=== PATIENT | female | born 1950 | race Caucasian/White ===

== ENCOUNTER 2022-05-10 19:12 | Outpatient (RCR) | payer OTHER, SELFPAY | END 2022-07-27 13:56 | disposition home or self-care (01) | LOC: MOW 19:12 | PROVIDERS: PCP Physician Assistant Medical; Visit Provider Physician Assistant Medical | DX: Z76.0 Encounter for issue of repeat prescription (principal) | CPT/HCPCS: S5170 ==

== ENCOUNTER 2022-07-01 21:15 | Emergency (ER) | payer MEDICARE, BC, SELFPAY ==
--- NOTE | 2022-07-01 | CT_ITS ---
Patient: NAVDEEP YOUNG Facility:?[facility] RIS Patient ID:?[id number] Site Patient ID:?[id number]. Site :?[id number] Study:?CT-Neck Angio Angio W/95CC IOSVUE 370 STROKE PROTOCO-07/01/2022 11:35:20 PM Ordering Physician:Bridget Kaplan Final Report: DATE: 07/01/2022 CLINICAL HISTORY: Patient with right arm numbness and weakness. TECHNIQUE: Standard helical CT image acquisition of the neck up to the skull base after bolus intravenous contrast enhancement. Multiplanar reconstructed images performed on a separate workstation. COMPARISON: CT same day. FINDINGS: The origins of the great vessels from the aortic arch are patent. The origin of the right vertebral artery is patent. The origin of the left vertebral artery is patent. The common carotid arteries are patent. There is no stenosis at the origin of the right internal carotid artery. There is no stenosis at the origin of the left internal carotid artery. The rest of the cervical segments of the internal carotid arteries are patent up to the skull base. The left vertebral artery is dominant. The cervical segments of the vertebral arteries are patent up to the skull base. The visualized intracranial vasculature is unremarkable. The visualized lung apices are unremarkable. The thyroid gland is unremarkable. The soft tissues of the neck are unremarkable. There are degenerative changes in the cervical spine. IMPRESSION: Normal CT angiogram of the neck. Please note that all CT scans at this facility use dose modulation, iterative reconstruction, and/or weight-based dosing when appropriate to reduce radiation dose to as low as reasonably achievable. Dictated by Nia Cohn MD @ 07/02/2022 9:43:19 AM Signed by:?Nia Cohn MD @07/02/2022 9:43:19 AM (Electronic Signature)
[2022-07-01 21:32] VITALS: BP 168/76; PULSE 82; RESP 18; TEMP 36.8; O2SAT 95; BMI 38.6
--- NOTE | 2022-07-01 22:19 | ED_ITS ---
HPI - Neuro Symptoms/Deficit General Chief Complaint: Neuro Symptoms/Altered Deficit Stated Complaint: No feeling in right arm Time Seen by Provider: 07/01/22 21:31 History of Present Illness HPI Narrative: 71-year-old woman presenting to the emergency department with daughter With complaint of numbness in her right arm. Further questioning reveals also that there is weakness. There is underlying history of cerebral vascular accident that occurred during a TAVR 1.5 years ago resulting in a thalamic stroke and after much is left with some mild difficulty with memory and mild word confusion at times. She is transitioning positions and has been missing her medications over the last couple of weeks. does have a history of breast cancer and subsequent lymphedema of the right arm, she is left hand dominant, and normally has to wear compression. She has a number of compression socks and placed one on today that is just too tight. She did leave it on for approximately 12 hours however then when she took it off, she suspects around 5 hours ago, noticed that her right hand was numb and had a cold sensation; has noticed that this numbness continued on up to her deltoid. and that her arm is generally weak. This is atypical. She was otherwise in usual state of health. No cough or cold symptoms. She is not having any since. No fevers. No chest pain no shortness of breath Related Data Home Medications Medication Instructions Recorded Confirmed acetaminophen 300 mg-codeine 30 mg 1 tab PO Q4H PRN pain 07/01/22 07/01/22 tablet cholecalciferol (vitamin D3) 25 1,000 unit PO DAILY 07/01/22 07/01/22 mcg (1,000 unit) capsule losartan 25 mg tablet 25 mg PO DAILY 07/01/22 07/01/22 polyvinyl alcohol-povidone (PF) 1 drp ophthalmic (eye) DAILY PRN 07/01/22 07/01/22 1.4 %-0.6 % eye drops in a dropperette Allergies Allergy/AdvReac Type Severity Reaction Status Date / Time aspirin Allergy Severe throat Verified 07/01/22 21:45 swelling atenolol Allergy Severe tongue Verified 07/01/22 21:45 swelling cefazolin Allergy Severe colitis, Verified 07/01/22 21:45 thrush clindamycin Allergy Severe shortness Verified 07/01/22 21:45 of breath formaldehyde Allergy Severe toxicity Verified 07/01/22 21:45 hydrocodone Allergy Severe throat Verified 07/01/22 21:45 swelling mercury (elemental) Allergy Severe toxicity Verified 07/01/22 21:45 metformin Allergy Intermediate nausea, Verified 07/01/22 22:16 diarrhea tramadol Allergy Intermediate gi upset Verified 07/01/22 21:45 chlorhexidine Allergy Mild Rash Verified 07/01/22 22:16 lisinopril Allergy Mild Rash Verified 07/01/22 22:16 adhesive Allergy Unknown Verified 07/01/22 21:45 corn Allergy Unknown Verified 07/01/22 22:16 cortisone Allergy Unknown Verified 07/01/22 22:16 Echinacea Allergy Unknown Verified 07/01/22 22:16 eggplant Allergy Unknown Verified 07/01/22 22:16 garlic Allergy Unknown Verified 07/01/22 22:16 house dust Allergy Unknown Verified 07/01/22 22:16 house dust mite Allergy Unknown Verified 07/01/22 22:16 latex Allergy Unknown Verified 07/01/22 21:45 milk Allergy Unknown Verified 07/01/22 22:16 misoprostol Allergy Unknown Verified 07/01/22 21:45 nickel Allergy Unknown Verified 07/01/22 21:45 paprika Allergy Unknown Verified 07/01/22 22:16 peanut oil Allergy Unknown Verified 07/01/22 21:45 perfume Allergy Unknown Verified 07/01/22 22:16 pork derived (porcine) Allergy Unknown Verified 07/01/22 22:16 soy Allergy Unknown Verified 07/01/22 22:16 Sulfa (Sulfonamide Allergy Unknown Verified 07/01/22 21:45 Antibiotics) ibuprofen Allergy gi bleeding Verified 07/01/22 22:16 chlorine Allergy Severe breathing Uncoded 07/01/22 21:45 difficulty Review of Systems Status of ROS: Reports: 10 or more systems reviewed and unremarkable except as noted in History and below [facility] Medical History Acute ischemic stroke Adenoma of right adrenal gland Adjustment disorder with mixed anxiety and depressed mood Anemia, iron deficiency Anxiety state Arthralgia Asthma without status asthmaticus Autoimmune disorder B12 deficiency Bone/cartilage disorder Carcinoma in situ of cervix, unspecified Chronic kidney disease, stage 3a Chronic myofascial pain Complaint of rash Complex tear of medial meniscus, current injury, right knee, initial encounter Controlled diabetes mellitus with complication, without long-term current use of insulin Cyst of kidney, acquired Elevated serum creatinine Endometrial polyp Essential (primary) hypertension Fatty liver Gastro-esophageal reflux disease without esophagitis Hemiplegia and hemiparesis following cerebral infarction affecting left non- dominant side Hernia, hiatal Lymphedema, not elsewhere classified Malignant neoplasm of female breast Moderate episode of recurrent major depressive disorder Morbid (severe) obesity due to excess calories Myalgia, unspecified site Nephrolithiasis Nonrheumatic aortic (valve) stenosis Osteopenia of multiple sites Other hyperlipidemia Pain in extremity Polymyalgia rheumatica Prediabetes Primary hyperparathyroidism Pure hyperglyceridemia Rosacea, unspecified Ulcerative colitis with rectal bleeding Vitamin D deficiency, unspecified Surgical History H/O arthroscopy of right knee H/O parathyroidectomy History of aortic valve replacement History of breast reconstruction History of dilatation and curettage History of right mastectomy History of YAG laser iridotomy of both eyes Hx of cataract extraction Social History Smoking Status: Never smoker Do you use any of these nicotine containing products: None Second hand tobacco smoke exposure: No How often do you have a drink containing alcohol: never How often do you have six or more drinks on one occasion: Never AUDIT-C Alcohol total score: 0 Non-prescribed substance use: denies use service: No Exam Narrative: Exam Narrative: very pleasant. Mildly anxious. Was noted to be ambulatory into the ER. Cranial nerves 2-12 are intact. GCS of 15. She is breathing easily and articulating clearly. Other than the right arm is moving all extremities without difficulty. I would score 2 on the NIH Stroke Scale for the degree of sensory loss and deficit in the right arm. unable distinguish soft touch from pinprick on her entire arm at this time and moves about his if weak but does not actually hit the bed drifts vaguely. Has about a 3rd of the dairy hand strength in her right that she would send left. the sensory loss is total not discrete to specific nerve distribution. Head is atraumatic. Lungs are clear no pain or evidence to palpation about the and chest or back. cardiovascular with regular rate and rhythm 2/6 systolic murmur loudest at the right sternal border Extremities actually well perfused she has good capillary refill including on the right Const: Vital Signs, click to edit/add: Vital Signs - 24 hr 08/19/22 21:32 07/01/22 23:48 Temperature 98.2 F Pulse Rate [Right Radial] 82 Respiratory Rate 18 23 Blood Pressure [Le ft Upper Arm] 168/76 H 141/67 H Pulse Oximetry 95 97 Oxygen Delivery Me thod Room Air Documenting provider has reviewed patient's vital signs: yes Course Course Hospital Course: IV fluids were initiated. Reevaluation(s) Reevaluation #1: During time of resulting of the CTA Ms. Jeffrey was already having improvement in her motor of her right arm and hand. Would estimate she had doubled the strength of her right hand with improved coordination as well upper arm and hand. Still could not feel her forearm though this also improved a little later with some resolution of her sensory Reevaluation #2: Subsequent evaluation around 1:30 a.m. with continued strengthening of her arm, improved coordination and sensation. Consultations Consultation #1: I spoke with Stroke Neuro on-call with Suzette Mckeon recommending watching in the emergency department overnight(as we do not have any beds in the hospital) giving aspirin if possible(I would note Ms. Jeffrey does not have a true allergy to aspirin) and doing an MRI of the brain tomorrow. Vital Signs Vital signs: Initial Vital Signs Temperature 98.2 F 07/01/22 21:32 Temperature Source Temporal Artery Scan 07/01/22 21:32 Pulse Rate 82 07/01/22 21:32 Pulse Rhythm 07/01/22 21:32 Pulse Strength 3+ Normal 07/01/22 21:32 Respiratory Rate 18 07/01/22 21:32 Blood Pressure 168/76 H 07/01/22 21:32 Blood Pressure Mean 106 07/01/22 21:32 Blood Pressure Position Semi-Fowlers 07/01/22 21:32 Pulse Oximetry 95 07/01/22 21:32 Oxygen Delivery Method 07/01/22 21:32 Vital Signs Temperature 98.2 F 07/01/22 21:32 Pulse Rate 82 07/01/22 21:32 Respiratory Rate 18 07/01/22 21:32 Blood Pressure 168/76 H 07/01/22 21:32 Pulse Oximetry 95 07/01/22 21:32 Oxygen Delivery Method 07/01/22 21:32 Temperature 98.2 F 07/01/22 21:32 Pulse Rate 82 07/01/22 21:32 Respiratory Rate 23 07/01/22 23:48 Blood Pressure 141/67 H 07/01/22 23:48 Pulse Oximetry 97 07/01/22 23:48 Oxygen Delivery Method 07/01/22 21:32 MDM - Neuro Symptoms/Deficit MDM Narrative Medical decision making narrative: after interviewing patient went immediately to call to stroke neuro. Given unclear duration of numbness/weakness as admittedly it could be a little bit longer than described, not a candidate for lytics. Concern still remains of large vessel occlusion. Spoke to Stroke Neuro who would go ahead CTA of head/neck no other recommended interventions at this time. CTA confirmed no large vessel occlusions and as noted elsewhere in record Ms. Jeffrey continued to improve. I think this is really more of a peripheral problem due to prolonged compression in a lymphedematous limb. Initial appearance really did seem to be more of a limb that had been slept on. Laboratory evaluations were normal. Agreed to sleep Ms. Jeffrey in the emergency department overnight for an MRI in the morning until realized that the morning is Monday. There is a possibility though of an MRI of the brain here in this department in the morning due to staff who are working. This is been discussed with colleague at change of shift. Symptoms are clearing and provided normal MRI would consider ultrasound of the right upper extremity if symptoms have not resolved Would note that the prior CVA occurred related to a surgical procedure and in that sense was provoked. Medical Records Attestation: I reviewed the patient's medical records. Lab Data Attestation: I reviewed the patient's lab results. Labs: Lab Results 07/01/22 07/01/22 07/01/22 Range/Units 22:20 22:30 22:30 WBC 6.35 (4.50-11.00) K/uL RBC 4.71 (4.00-5.20) m/uL Hgb 13.0 (12.0-16.0) gm/dL Hct 40.7 (33.0-51.0) % MCV 86 (80-100) fL MCH 28 (26-34) pg MCHC 32 (32-36) gm/dL RDW Coeff of Joaquín 14.4 (11.5-15.5) % Plt Count 233 (140-440) K/uL Neut % (Auto) 58.3 (42.0-72.0) % Lymph % (Auto) 26.6 (20-44) % [place] % (Auto) 9.8 (0.0-11.0) % Eos % (Auto) 4.1 (0.0-7.0) % Baso % (Auto) 0.6 (0.0-3.0) % Neut # (Auto) 3.70 (1.7-7.0) K/uL Lymph # (Auto) 1.69 (0.90-2.90) K/uL [place] # (Auto) 0.60 (0.00-0.90) K/UL Eos # (Auto) 0.26 (0.00-0.50) K/uL Baso # (Auto) 0.04 (0.00-0.30) K/uL Abs Immat Gran (auto) 0.04 (0.00-0.30) K/uL INR (0.91-1.10) APTT (23-33) Seconds Sodium (135-149) mmol/L Potassium (3.6-5.1) mmol/L Chloride (96-114) mmol/L Carbon Dioxide (20-32) mmol/L BUN (7-30) mg/dL Creatinine (0.5-1.5) mg/dL Estimated Creat Clear Estimated GFR ml/min Glucose (60-115) mg/dL Calcium (8.4-10.6) mg/dL Total Bilirubin (0.1-1.5) mg/dL AST (12-35) U/L ALT (4-35) U/L Alkaline Phosphatase (40-150) U/L Total Creatine Kinase (41-117) U/L Troponin I (0.01-0.04) ng/mL C-Reactive Protein 0.9 (0.5-1.0) mg/dL Total Protein (6.0-8.3) g/dL Albumin (3.3-5.0) g/dL SARS-CoV-2 (PCR) (Negative) POC Troponin I 0.01 (0.01-0.04) ng/ml 07/01/22 07/01/22 07/01/22 Range/Units 22:30 22:30 22:30 WBC (4.50-11.00) K/uL RBC (4.00-5.20) m/uL Hgb (12.0-16.0) gm/dL Hct (33.0-51.0) % MCV (80-100) fL MCH (26-34) pg MCHC (32-36) gm/dL RDW Coeff of Joaquín (11.5-15.5) % Plt Count (140-440) K/uL Neut % (Auto) (42.0-72.0) % Lymph % (Auto) (20-44) % [place] % (Auto) (0.0-11.0) % Eos % (Auto) (0.0-7.0) % Baso % (Auto) (0.0-3.0) % Neut # (Auto) (1.7-7.0) K/uL Lymph # (Auto) (0.90-2.90) K/uL [place] # (Auto) (0.00-0.90) K/UL Eos # (Auto) (0.00-0.50) K/uL Baso # (Auto) (0.00-0.30) K/uL Abs Immat Gran (auto) (0.00-0.30) K/uL INR 0.92 (0.91-1.10) APTT 28 (23-33) Seconds Sodium 142 (135-149) mmol/L Potassium 4.0 (3.6-5.1) mmol/L Chloride 108 (96-114) mmol/L Carbon Dioxide 26 (20-32) mmol/L BUN 18 (7-30) mg/dL Creatinine 1.2 (0.5-1.5) mg/dL Estimated Creat Clear 59.66 Estimated GFR 49 ml/min Glucose 103 (60-115) mg/dL Calcium 8.8 (8.4-10.6) mg/dL Total Bilirubin 0.3 (0.1-1.5) mg/dL AST 34 (12-35) U/L ALT 16 (4-35) U/L Alkaline Phosphatase 80 (40-150) U/L Total Creatine Kinase (41-117) U/L Troponin I 0.01 (0.01-0.04) ng/mL C-Reactive Protein (0.5-1.0) mg/dL Total Protein 7.5 (6.0-8.3) g/dL Albumin 4.0 (3.3-5.0) g/dL SARS-CoV-2 (PCR) Negative SARS-CoV-2 (Negative) POC Troponin I (0.01-0.04) ng/ml 07/01/22 Range/Units 22:30 WBC (4.50-11.00) K/uL RBC (4.00-5.20) m/uL Hgb (12.0-16.0) gm/dL Hct (33.0-51.0) % MCV (80-100) fL MCH (26-34) pg MCHC (32-36) gm/dL RDW Coeff of Joaquín (11.5-15.5) % Plt Count (140-440) K/uL Neut % (Auto) (42.0-72.0) % Lymph % (Auto) (20-44) % [place] % (Auto) (0.0-11.0) % Eos % (Auto) (0.0-7.0) % Baso % (Auto) (0.0-3.0) % Neut # (Auto) (1.7-7.0) K/uL Lymph # (Auto) (0.90-2.90) K/uL [place] # (Auto) (0.00-0.90) K/UL Eos # (Auto) (0.00-0.50) K/uL Baso # (Auto) (0.00-0.30) K/uL Abs Immat Gran (auto) (0.00-0.30) K/uL INR (0.91-1.10) APTT (23-33) Seconds Sodium (135-149) mmol/L Potassium (3.6-5.1) mmol/L Chloride (96-114) mmol/L Carbon Dioxide (20-32) mmol/L BUN (7-30) mg/dL Creatinine (0.5-1.5) mg/dL Estimated Creat Clear Estimated GFR ml/min Glucose (60-115) mg/dL Calcium (8.4-10.6) mg/dL Total Bilirubin (0.1-1.5) mg/dL AST (12-35) U/L ALT (4-35) U/L Alkaline Phosphatase (40-150) U/L Total Creatine Kinase 36 L (41-117) U/L Troponin I (0.01-0.04) ng/mL C-Reactive Protein (0.5-1.0) mg/dL Total Protein (6.0-8.3) g/dL Albumin (3.3-5.0) g/dL SARS-CoV-2 (PCR) (Negative) POC Troponin I (0.01-0.04) ng/ml ECG Data Attestation: I personally reviewed and interpreted this ECG as follows: (Normal sinus rate of [address] elevations no depressions no Q-waves.) Critical Care Time Critical Care Time Critical Care Time: Yes Attestation: The patient required my highest level preparedness to intervene emergently and I personally spent this critical care time directly and personally managing the patient. This critical care time included: Obtaining a history; Examining the patient; Pulse oximetry; Ordering and reviewing of studies; Arranging urgent treatment with development of a management plan; Evaluation of patients response to treatment; Frequent reassessment discussions with other providers. This critical care time was performed to assess and manage the high probability of imminent life-threatening deterioration that could result in multiorgan failure. It was exclusive of separate billable procedures and treating other patients and teaching time. Total Critical Care Time in Minutes: 40 Discharge Plan Discharge Clinical Impression: Paresthesia Patient Disposition: Home w/ Parent or Adult Condition: Improved Additional Instructions: Hydrate. Avoid extremely tight compression of your arm. Restart prescribed medications. Prescriptions: No Action acetaminophen-codeine 300-30 mg tablet 1 tab PO Q4H PRN (Reason: pain) Label Comments: Take 1 Tablet by mouth every 4 hours if needed for Pain. Max acetaminophen dose: 4000mg in 24 hrs. losartan 25 mg tablet 25 mg PO DAILY Label Comments: TAKE ONE TABLET BY MOUTH ONE TIME DAILY cholecalciferol (vitamin D3) 25 mcg (1,000 unit) capsule 1,000 unit PO DAILY polyvinyl alcohol-povidon(PF) 1.4-0.6 % dropperette 1 drp ophthalmic (eye) DAILY PRN Follow Up/Referrals: Marga Arzola DO [Primary Care Provider] - Stand Alone Forms: [facility] Info Instructions
--- NOTE | 2022-07-01 22:27 | CT_ITS ---
Patient: NAVDEEP YOUNG Facility:?[facility] R[facility] Patient ID:?[id number] Site Patient ID:?[id number]. Site :?[id number] Study:?CT-Head Angio W/95CC IOSVUE 370 STROKE PROTOCOL-07/01/2022 11:31:57 PM Ordering Physician:Bridget Kaplan Final Report: DATE: 07/01/2022 CLINICAL HISTORY: Patient with right arm numbness and weakness. TECHNIQUE: Standard helical CT image acquisition through the intracranial circulation following intravenous administration of contrast material with bolus tracking. Multiplanar reconstructed images were performed and interpreted. COMPARISON: CT same day. FINDINGS: There is no cerebral aneurysm or large vessel occlusion. The right internal carotid artery demonstrates intracranial atherosclerosis with a moderate stenosis in its supraclinoid segment. The right middle cerebral artery and its branches are normal. The right anterior cerebral artery and its branches are normal. The left internal carotid artery demonstrates intracranial atherosclerosis with a mild stenosis in its supraclinoid segment. The left middle cerebral artery and its branches are normal. The left anterior cerebral artery and its branches are normal. The anterior communicating artery is well visualized and appears normal. The right vertebral artery and PICA are normal. The left vertebral artery and PICA are normal. The left vertebral artery is dominant. The basilar artery is patent and appears normal. The right posterior cerebral artery is normal. The left posterior cerebral artery is normal. IMPRESSION: 1. No proximal intracranial large vessel occlusion. 2. Intracranial atherosclerosis with moderate right and mild left supraclinoid ICA stenoses. Please note that all CT scans at this facility use dose modulation, iterative reconstruction, and/or weight-based dosing when appropriate to reduce radiation dose to as low as reasonably achievable. Dictated by Nia Cohn MD @ 07/02/2022 9:41:34 AM Signed by:?Nia Cohn MD @07/02/2022 9:41:34 AM (Electronic Signature)
--- NOTE | 2022-07-01 22:27 | CRLHL7_ITS ---
For Patients: As a result of the Century Cures Act, medical imaging exams and procedure reports are released immediately into your electronic medical record. You may view this report before your referring provider. If you have questions, please contact your health care provider. INDICATION: Right arm numbness, weakness TECHNIQUE: CT Head without i.v. contrast. Coronal and sagittal reformats were obtained. COMPARISON: None FINDINGS: CSF space: Unremarkable for age. Brain: A chronic lacunar infarct is present near the genu of the right internal capsule. No mass-effect or midline shift is seen. Mild diffuse cortical atrophy is noted. Calvarium: The visualized paranasal sinuses are well aerated. The mastoid air cells are clear. The patient is status post bilateral cataract removal. The calvarium is unremarkable in appearance with no fractures identified. IMPRESSION: 1. No evidence of acute infarction, intracranial hemorrhage, or mass-effect seen. The findings were discussed with Dr. Mcmahan at 12:06 AM. Dictated by Huy Diaz MD @ 07/01/2022 11:56:13 PM Please note that all CT scans at this facility use dose modulation, iterative reconstruction, and/or weight-based dosing when appropriate to reduce radiation dose to as low as reasonably achievable. Dictated by: Huy Diaz MD @ 07/02/2022 00:06:47 (Electronically Signed)
[2022-07-01] MEDS: 0.9 % SODIUM CHLORIDE 1000 ml 1,000 ML IV (22:43)
[2022-07-01 22:50] LABS: Basophils Absolute Auto 0.04 K/uL (0.00-0.30); Basophils Percent Auto 0.6 % (0.0-3.0); Eosinophils Absolute Auto 0.26 K/uL (0.00-0.50); Eosinophils Percent Auto 4.1 % (0.0-7.0); Hematocrit 40.7 % (33.0-51.0); Immature Granulocytes Abs Auto 0.04 K/uL (0.00-0.30); Lymphocytes Absolute Auto 1.69 K/uL (0.90-2.90); Lymphocytes Percent Auto 26.6 % (20-44); Mean Corpuscular HGB Conc 32 gm/dL (32-36); Mean Corpuscular Hemoglobin 28 pg (26-34); Mean Corpuscular Volume 86 fL (80-100); Monocytes Percent Auto 9.8 % (0.0-11.0); Neutrophils Percent Auto 58.3 % (42.0-72.0); Platelet Count* 233 K/uL (140-440); RDW Coefficient of Variation % 14.4 % (11.5-15.5); Red Blood Count 4.71 m/uL (4.00-5.20); White Blood Count* 6.35 K/uL (4.50-11.00)
[2022-07-01 22:53] LABS: Slide Review Reflex No
[2022-07-01 23:07] LABS: Chloride* 108 mmol/L (96-114); INR 0.92 (0.91-1.10); Prothrombin Time 12.8 Seconds
[2022-07-01 23:08] LABS: Partial Thromboplastin Time* 28 Seconds (23-33); Sodium* 142 mmol/L (135-149)
[2022-07-01 23:11] LABS: Alanine Aminotransferase* 16 U/L (4-35); Alkaline Phosphatase* 80 U/L (40-150); Aspartate Amino Transferase* 34 U/L (12-35); Bilirubin Total* 0.3 mg/dL (0.1-1.5); Blood Urea Nitrogen* 18 mg/dL (7-30); Calcium* 8.8 mg/dL (8.4-10.6); Carbon Dioxide* 26 mmol/L (20-32); Creatine Kinase* 36 U/L (41-117); Creatinine* 1.2 mg/dL (0.5-1.5); Est. Creatinine Clearance* 59.66; Estimated Glomerular Filt Rate 49 ml/min; Glucose* 103 mg/dL (60-115); Total Protein* 7.5 g/dL (6.0-8.3)
[2022-07-01 23:13] LABS: C Reactive Protein* 0.9 mg/dL (0.5-1.0)
[2022-07-01 23:23] LABS: Troponin I* 0.01 ng/mL (0.01-0.04)
[2022-07-01 23:48] VITALS: BP 141/67; RESP 23; O2SAT 97
--- NOTE | 2022-07-01 23:50 | ED.NURSE ---
Patient with no neurologic change since previous assessment. Still with some weakness and no sensation in right arm and hand. Patient is able to move fingers and make fist better than on arrival.
[2022-07-01 23:54] LABS: Troponin, Point-of-Care* 0.01 ng/ml (0.01-0.04)
--- NOTE | 2022-07-02 00:01 | ED.NURSE ---
Patient ambulatory to bathroom with family assist.
[2022-07-02 00:21] LABS: SARS PCR* Negative SARS-CoV-2 (Negative)
--- NOTE | 2022-07-02 02:28 | ED.NURSE ---
Patient ambulatory to with family assist.
[2022-07-02] MEDS: ASPIRIN 81 MG TABLET EC PO (07:08)
--- NOTE | 2022-07-02 08:02 | PC.NURSE ---
Dr Richmond saw pt, daughter contacted and will be en route to pick pt up shortly
--- NOTE | 2022-07-02 08:12 | PC.NURSE ---
pt got herself up to the commode with stand by assist, pt unable to locate shorts in belongings, given some paper pants to get home with, daughter Alana called and on her way to ER
== END 2022-07-02 08:45 | disposition home or self-care (01) ==
PROVIDERS: Emergency Provider Family Medicine; PCP Family Medicine
DX: R20.2 Paresthesia of skin (principal); I25.2 Old myocardial infarction
CPT/HCPCS: 36415; 70450; 70496; 70498; 80053; 81003; 82550; 84484; 85025; 85610; 85730; 86140; 87635; 93005; 96360; 99284; 99285; 99291; A9270; J7030; Q9967

== ENCOUNTER 2022-09-05 11:51 | Outpatient (REF) | payer MEDICARE, BC, SELFPAY ==
[2022-09-05 14:04] LABS: SARS PCR* Negative SARS-CoV-2 (Negative)
== END 2022-09-05 11:52 | disposition home or self-care (01) ==
LOC: NPINS 11:51
PROVIDERS: PCP Family Medicine; Visit Provider Internal Medicine
DX: Z20.822 Contact with and (suspected) exposure to COVID-19 (principal)
CPT/HCPCS: 87635

== ENCOUNTER 2022-10-13 10:00 | Outpatient (RCR) | payer MEDICARE, BC, SELFPAY | END 2023-01-27 15:57 | disposition home or self-care (01) | PROVIDERS: PCP Family Medicine; Visit Provider Family Medicine | DX: I89.0 Lymphedema, not elsewhere classified (principal); Z51.89 Encounter for other specified aftercare | CPT/HCPCS: 97110; 97140; 97165; 97535; X5282 ==

== ENCOUNTER 2023-05-07 10:59 | Emergency (ER) | payer MEDICARE, BC, SELFPAY ==
--- NOTE | 2023-05-07 11:02 | CRLHL7_ITS ---
For Patients: As a result of the Century Cures Act, medical imaging exams and procedure reports are released immediately into your electronic medical record. You may view this report before your referring provider. If you have questions, please contact your health care provider. CLINICAL HISTORY: Stroke. TECHNIQUE: CTA head with contrast bolus tracking. 3D angiographic rendering using maximum intensity projection (MIP) and images permanently archived. COMPARISON: None available. FINDINGS: No intracranial proximal large vessel occlusion. There is intracranial atherosclerotic disease with resulting moderate to severe stenosis of the supraclinoid right ICA. There is no cerebral aneurysm or findings to suggest an arterial-venous shunting lesion. IMPRESSION: Intracranial atherosclerotic disease with moderate to severe stenosis of the supraclinoid right ICA. Please note that all CT scans at this facility use dose modulation, iterative reconstruction, and/or weight-based dosing when appropriate to reduce radiation dose to as low as reasonably achievable. Dictated by Dong Arthur MD @ 05/07/2023 2:27:26 PM (Electronically Signed)
--- NOTE | 2023-05-07 11:02 | CRLHL7_ITS ---
For Patients: As a result of the Century Cures Act, medical imaging exams and procedure reports are released immediately into your electronic medical record. You may view this report before your referring provider. If you have questions, please contact your health care provider. CLINICAL HISTORY: Stroke. TECHNIQUE: CTA neck with contrast bolus tracking. 3D angiographic rendering using maximum intensity projection (MIP) and images permanently archived. COMPARISON: CTA head and neck dated 07/01/2022. FINDINGS: The great vessels are patent. The common carotid arteries are patent. The proximal ICAs are patent without signficant stenoses by NASCET criteria. The more distal cervical ICAs are patent. The origins of the vertebral arteries are patent. The cervical segments of the vertebral arteries are patent. IMPRESSION: Patent cervical arterial vasculature without hemodynamically significant luminal stenosis. Please note that all CT scans at this facility use dose modulation, iterative reconstruction, and/or weight-based dosing when appropriate to reduce radiation dose to as low as reasonably achievable. Dictated by Dong Arthur MD @ 05/07/2023 2:30:04 PM (Electronically Signed)
--- NOTE | 2023-05-07 11:02 | CRLHL7_ITS ---
For Patients: As a result of the Century Cures Act, medical imaging exams and procedure reports are released immediately into your electronic medical record. You may view this report before your referring provider. If you have questions, please contact your health care provider. INDICATION: Stroke-like symptoms. TECHNIQUE: Noncontrast CT images acquired through the brain. COMPARISON: CT brain 07/01/2022. FINDINGS: New small to moderate chronic infarction within the anterolateral left parietal lobe. Stable chronic lacunar infarction or prominent perivascular space right internal capsule genu. Mild diffuse cerebral volume loss. No mass effect or midline shift. No acute intracranial hemorrhage or pathologic extra-axial fluid collection. Scattered hypoattenuation in the supratentorial white matter, suggestive of mild chronic microvascular ischemic changes. Dense intracranial atherosclerotic calcifications in the carotid siphons. Thinning of the ocular lenses. The calvarium is intact. The paranasal sinuses are well aerated. The mastoid air cells are clear. IMPRESSION: 1. No acute intracranial hemorrhage or mass effect. 2. New small moderate chronic infarction within the anterolateral left parietal lobe. Please note that all CT scans at this facility use dose modulation, iterative reconstruction, and/or weight-based dosing when appropriate to reduce radiation dose to as low as reasonably achievable. Dictated by Jackson Martinez MD @ 05/07/2023 11:50:34 AM (Electronically Signed)
[2023-05-07 11:03] VITALS: BP 159/70; PULSE 73; RESP 16; TEMP 35.9; O2SAT 99
[2023-05-07 11:11] VITALS: O2SAT 98
--- NOTE | 2023-05-07 11:13 | ED.NURSE ---
1102-Pt arrived to ER room 8. Pt and daught insisted that pt use restroom. Pt c/o left mouth numbness and tingling that started about 10 min ago. Pt walked to BR, Dr Reis updated and CT ordered. 1108-Pt done in BR, to CT, Dr Reis aware pt getting IV started in CT. Dr Reis stated that she will see pt after CT
[2023-05-07 11:14] LABS: Appearance Urine Clear (Clear); Bilirubin Urine Negative (Negative); Blood Urine Negative (Negative); Color Urine Yellow (Yellow); Glucose Urine Negative (Negative); Ketones Urine Negative (Negative); Leukocyte Esterase Urine Negative (Negative); Nitrite Urine Negative (Negative); Protein Urine Negative (Negative); Specific Gravity Urine >= 1.030 (1.000-1.030); Urobilinogen Urine 0.2 (0.2-1.0)
[2023-05-07 11:18] LABS: Basophils Absolute Auto 0.03 K/uL (0.00-0.30); Basophils Percent Auto 0.4 % (0.0-3.0); Eosinophils Absolute Auto 0.24 K/uL (0.00-0.50); Eosinophils Percent Auto 3.4 % (0.0-7.0); Hematocrit 46.4 % (33.0-51.0); Hemoglobin* 15.5 gm/dL (12.0-16.0); Immature Granulocytes Abs Auto 0.06 K/uL (0.00-0.30); Immature Granulocytes Pct Auto 0.8 %; Lymphocytes Percent Auto 19.6 % (20-44); Mean Corpuscular HGB Conc 33 gm/dL (32-36); Mean Corpuscular Hemoglobin 31 pg (26-34); Mean Corpuscular Volume 94 fL (80-100); Monocytes Percent Auto 10.7 % (0.0-11.0); Neutrophils Percent Auto 65.1 % (42.0-72.0); Platelet Count* 202 K/uL (140-440); RDW Coefficient of Variation % 12.4 % (11.5-15.5); Red Blood Count 4.93 m/uL (4.00-5.20); White Blood Count* 7.08 K/uL (4.50-11.00)
[2023-05-07 11:21] LABS: Slide Review Reflex No
[2023-05-07 11:22] LABS: Bacteria Urine Few; RBC Urine 0-2 (0-2); Squamous Epithelial Cell Urine Moderate (None-Few)
[2023-05-07 11:31] VITALS: BP 159/70; PULSE 73; RESP 14; O2SAT 99
[2023-05-07 11:33] LABS: Chloride* 103 mmol/L (96-114); Potassium* 4.1 mmol/L (3.6-5.1); Sodium* 140 mmol/L (135-149)
[2023-05-07 11:36] LABS: Blood Urea Nitrogen* 24 mg/dL (7-30); Calcium* 9.5 mg/dL (8.4-10.6); Carbon Dioxide* 30 mmol/L (20-32); Creatinine* 1.1 mg/dL (0.5-1.5); Estimated Glomerular Filt Rate 54 ml/min; Glucose* 96 mg/dL (60-115)
[2023-05-07 11:40] LABS: INR 1.01 (0.91-1.10); Prothrombin Time 13.9 Seconds
[2023-05-07 11:46] VITALS: BP 143/81; PULSE 72; RESP 16; O2SAT 99
--- NOTE | 2023-05-07 11:52 | ED_ITS ---
HPI - General Adult General Chief complaint: Neuro Symptoms/Altered Deficit Stated complaint: left side mouth drooping, stroke like symptoms Time Seen by Provider: 05/07/23 11:01 Source: patient and family Mode of arrival: ambulatory Limitations: no limitations History of Present Illness HPI narrative: 72-year-old female coming in today concerned about facial drooping and slurred speech. This all started approximately 15-20 minutes prior to presenting to the ER. Patient was riding in the car when all of a sudden the left side of her mouth went numb. She then began having a difficult time speaking and her d aughter brought her to the ER. She denies weakness of arms or legs. She denies headache, blurry vision or ringing in her ears. She denies confusion or fogginess. Patient does have a complex medical history, status post CVA during an aortic valve replacement surgery. She does not take any blood thinners. She is on losartan for hypertension. She also has a history of B12 deficiency, asthma well-controlled, breast cancer, osteopenia, hyperlipidemia, fatty liver, anxiety, chronic myofascial pain, history of kidney stones, prediabetes, depression, polymyalgia rheumatica, primary hyperparathyroidism. Related Data Home Medications Medication Instructions Recorded Confirmed acetaminophen 300 mg-codeine 30 mg 1 tab PO Q4H PRN pain 07/01/22 07/01/22 tablet cholecalciferol (vitamin D3) 25 1,000 unit PO DAILY 07/01/22 07/01/22 mcg (1,000 unit) capsule losartan 25 mg tablet 25 mg PO DAILY 07/01/22 07/01/22 polyvinyl alcohol-povidone (PF) 1 drp ophthalmic (eye) DAILY PRN 07/01/22 07/01/22 1.4 %-0.6 % eye drops in a dropperette Previous Rx's Medication Instructions Recorded clopidogrel 75 mg tablet (Plavix) 75 mg PO DAILY #30 tabs 05/07/23 Allergies Allergy/AdvReac Type Severity Reaction Status Date / Time aspirin Allergy Severe throat Verified 07/01/22 21:45 swelling atenolol Allergy Severe tongue Verified 07/01/22 21:45 swelling cefazolin Allergy Severe colitis, Verified 07/01/22 21:45 thrush clindamycin Allergy Severe shortness Verified 07/01/22 21:45 of breath formaldehyde Allergy Severe toxicity Verified 07/01/22 21:45 hydrocodone Allergy Severe throat Verified 07/01/22 21:45 swelling mercury (elemental) Allergy Severe toxicity Verified 07/01/22 21:45 metformin Allergy Intermediate nausea, Verified 07/01/22 22:16 diarrhea tramadol Allergy Intermediate gi upset Verified 07/01/22 21:45 chlorhexidine Allergy Mild Rash Verified 07/01/22 22:16 lisinopril Allergy Mild Rash Verified 07/01/22 22:16 adhesive Allergy Unknown Verified 07/01/22 21:45 corn Allergy Unknown Verified 07/01/22 22:16 cortisone Allergy Unknown Verified 07/01/22 22:16 Echinacea Allergy Unknown Verified 07/01/22 22:16 eggplant Allergy Unknown Verified 07/01/22 22:16 garlic Allergy Unknown Verified 07/01/22 22:16 house dust Allergy Unknown Verified 07/01/22 22:16 house dust mite Allergy Unknown Verified 07/01/22 22:16 latex Allergy Unknown Verified 07/01/22 21:45 milk Allergy Unknown Verified 07/01/22 22:16 misoprostol Allergy Unknown Verified 07/01/22 21:45 nickel Allergy Unknown Verified 07/01/22 21:45 paprika Allergy Unknown Verified 07/01/22 22:16 peanut oil Allergy Unknown Verified 07/01/22 21:45 perfume Allergy Unknown Verified 07/01/22 22:16 pork derived (porcine) Allergy Unknown Verified 07/01/22 22:16 soy Allergy Unknown Verified 07/01/22 22:16 Sulfa (Sulfonamide Allergy Unknown Verified 07/01/22 21:45 Antibiotics) ibuprofen Allergy gi bleeding Verified 07/01/22 22:16 chlorine Allergy Severe breathing Uncoded 07/01/22 21:45 difficulty PFSH PFSH Medical History Asthma without status asthmaticus ?J45.909 - Unspecified asthma, uncomplicated (ICD-10) B12 deficiency ?E53.8 - Deficiency of other specified B group vitamins (ICD-10) Malignant neoplasm of female breast ?C50.919 - Malignant neoplasm of unspecified site of unspecified female breast (ICD-10) Complex tear of medial meniscus, current injury, right knee, initial encounter ?S83.231A - Complex tear of medial meniscus, current injury, right knee, initial encounter (ICD-10) Osteopenia of multiple sites ?M85.89 - Other specified disorders of bone density and structure, multiple sites (ICD-10) Vitamin D deficiency, unspecified ?E55.9 - Vitamin D deficiency, unspecified (ICD-10) Nonrheumatic aortic (valve) stenosis ?I35.0 - Nonrheumatic aortic (valve) stenosis (ICD-10) Rosacea, unspecified ?L71.9 - Rosacea, unspecified (ICD-10) Lymphedema, not elsewhere classified ?I89.0 - Lymphedema, not elsewhere classified (ICD-10) Other hyperlipidemia ?E78.49 - Other hyperlipidemia (ICD-10) Fatty liver ?K76.0 - Fatty (change of) liver, not elsewhere classified (ICD-10) Pure hyperglyceridemia ?E78.1 - Pure hyperglyceridemia (ICD-10) Gastro-esophageal reflux disease without esophagitis ?K21.9 - Gastro-esophageal reflux disease without esophagitis (ICD-10) Carcinoma in situ of cervix, unspecified ?D06.9 - Carcinoma in situ of cervix, unspecified (ICD-10) Anxiety state ?F41.1 - Generalized anxiety disorder (ICD-10) Anemia, iron deficiency ?D50.9 - Iron deficiency anemia, unspecified (ICD-10) Adjustment disorder with mixed anxiety and depressed mood ?F43.23 - Adjustment disorder with mixed anxiety and depressed mood (ICD-10) Chronic myofascial pain ?M79.18 - Myalgia, other site (ICD-10) ?G89.29 - Other chronic pain (ICD-10) Pain in extremity ?M79.609 - Pain in unspecified limb (ICD-10) Adenoma of right adrenal gland ?D35.01 - Benign neoplasm of right adrenal gland (ICD-10) Nephrolithiasis ?N20.0 - Calculus of kidney (ICD-10) Hernia, hiatal ?K44.9 - Diaphragmatic hernia without obstruction or gangrene (ICD-10) Prediabetes ?R73.03 - Prediabetes (ICD-10) Complaint of rash ?R21 - Rash and other nonspecific skin eruption (ICD-10) Arthralgia ?M25.50 - Pain in unspecified joint (ICD-10) Myalgia, unspecified site ?M79.10 - Myalgia, unspecified site (ICD-10) Cyst of kidney, acquired ?N28.1 - Cyst of kidney, acquired (ICD-10) Elevated serum creatinine ?R79.89 - Other specified abnormal findings of blood chemistry (ICD-10) Endometrial polyp ?N84.0 - Polyp of corpus uteri (ICD-10) Bone/cartilage disorder ?M89.9 - Disorder of bone, unspecified (ICD-10) ?M94.9 - Disorder of cartilage, unspecified (ICD-10) Controlled diabetes mellitus with complication, without long-term current use of insulin ?E11.8 - Type 2 diabetes mellitus with unspecified complications (ICD-10) Ulcerative colitis with rectal bleeding ?K51.911 - Ulcerative colitis, unspecified with rectal bleeding (ICD-10) Moderate episode of recurrent major depressive disorder ?F33.1 - Major depressive disorder, recurrent, moderate (ICD-10) Essential (primary) hypertension ?I10 - Essential (primary) hypertension (ICD-10) Acute ischemic stroke ?I63.9 - Cerebral infarction, unspecified (ICD-10) Chronic kidney disease, stage 3a ?N18.31 - Chronic kidney disease, stage 3a (ICD-10) Polymyalgia rheumatica ?M35.3 - Polymyalgia rheumatica (ICD-10) Hemiplegia and hemiparesis following cerebral infarction affecting left non- dominant side ?I69.354 - Hemiplegia and hemiparesis following cerebral infarction affecting left non-dominant side (ICD-10) Autoimmune disorder ?D89.89 - Other specified disorders involving the immune mechanism, not elsewhere classified (ICD-10) Primary hyperparathyroidism ?E21.0 - Primary hyperparathyroidism (ICD-10) Morbid (severe) obesity due to excess calories ?E66.01 - Morbid (severe) obesity due to excess calories (ICD-10) Surgical History History of breast reconstruction ?Z98.890 - Other specified postprocedural states (ICD-10) History of dilatation and curettage ?Z98.890 - Other specified postprocedural states (ICD-10) History of right mastectomy ?Z90.11 - Acquired absence of right breast and nipple (ICD-10) H/O parathyroidectomy ?E89.2 - Postprocedural hypoparathyroidism (ICD-10) Hx of cataract extraction ?Z98.49 - Cataract extraction status, unspecified eye (ICD-10) History of YAG laser iridotomy of both eyes ?Z98.890 - Other specified postprocedural states (ICD-10) H/O arthroscopy of right knee ?Z98.890 - Other specified postprocedural states (ICD-10) History of aortic valve replacement ?Z95.2 - Presence of prosthetic heart valve (ICD-10) Social History Smoking Status: Never smoker Do you use any of these nicotine containing products: None Second hand tobacco smoke exposure: No How often do you have a drink containing alcohol: never How often do you have six or more drinks on one occasion: Never AUDIT-C Alcohol total score: 0 Non-prescribed substance use: denies use service: No Exam Narrative: Exam Narrative: Well-nourished well-developed patient in no acute distress. Alert and oriented. Answers questions appropriately. Mood and affect are appropriate. Thoughts are goal oriented and rational. No tangential or magical thinking noted. Patient speaks in full sentences without needing to catch their breath. Face is symmetric. Speech is not slurred or pressured. HEENT: Normocephalic atraumatic. Pupils are equally round reactive to light. Extraocular muscles are intact. Conjunctivae are moist without any icterus noted. Moist mucous membranes. Posterior pharynx is normal. Neck is soft without any lymphadenopathy or thyromegaly. No masses are appreciated. Cardiovascular: Heart is regular rate and rhythm S1 and S2 are present without any murmurs. Lungs: Clear to auscultation bilaterally no wheezes rhonchi or rales are appreciated. Patient takes deep breaths without any discomfort. Abdomen: Soft and nontender nondistended with normal bowel sounds. No guarding or rebound. No masses or organomegaly appreciated. Extremities: Bilateral lower extremities are without edema. Normal DP and PT pulses. Skin: Well perfused without any obvious rashes. Strength is 5/5 of the upper and lower extremities. Cranial nerves 3-12 are normal. Eypjrf-rf-[id number] is normal. Fyeq-vg-yvph is normal. There is no nystagmus either horizontally or vertically. Gait is labored secondary to knee pain which is not new, no neurologic deficits noted. NIH score 0. Const: Vital Signs, click to edit/add: Vital Signs - 24 hr 05/07/23 11:03 05/07/23 11:11 05/07/23 11:31 Temperature 96.6 F L Pulse Rate 73 Pulse Rate [Pulse Oximeter] 73 Respiratory Rate 16 14 Blood Pressure 159/70 H Blood Pressure [Le ft Upper Arm] 159/70 H Pulse Oximetry 99 98 99 Oxygen Delivery Me thod Room Air 05/07/23 11:46 Temperature Pulse Rate 72 Pulse Rate [Pulse Oximeter] Respiratory Rate 16 Blood Pressure 143/81 H Blood Pressure [Le ft Upper Arm] Pulse Oximetry 99 Oxygen Delivery Me thod Course Course Hospital Course: Patient arrived to the ER was taken to CT within [address] was followed by CTA of the head and neck. I met her in her room after she had her exam is done and by the time I met her she was asymptomatic as far as facial droop or slurred speech. She was still complaining of numbness over the corner of the left mouth. EKG, read by me, shows normal sinus rhythm with a pulse of 71. CT showing New small moderate chronic infarction within the anterolateral left parietal lobe which is not consistent with the site of her symptoms. CTA showing moderately to severe carotid stenosis on the right. I did consult with Dr. Plummer, stroke neurologist at [facility], who recommended dual anti-platelet therapy and a consultation with vascular surgery as an outpatient. Unfortunately, patient states that she is allergic to aspirin, states that a causes significant GI upset and diarrhea and she refuses to take it. Lab work unremarkable. Vital Signs Vital signs: Initial Vital Signs Temperature 96.6 F L 05/07/23 11:03 Temperature Source Temporal Artery Scan 05/07/23 11:03 Pulse Rate 73 05/07/23 11:03 Pulse Rhythm Regular 05/07/23 11:03 Respiratory Rate 16 05/07/23 11:03 Blood Pressure 159/70 H 05/07/23 11:03 Blood Pressure Mean 99 05/07/23 11:03 Blood Pressure Position Sitting 05/07/23 11:03 Pulse Oximetry 99 05/07/23 11:03 Oxygen Delivery Method Room Air 05/07/23 11:03 Vital Signs Temperature 96.6 F L 05/07/23 11:03 Pulse Rate 73 05/07/23 11:03 Respiratory Rate 16 05/07/23 11:03 Blood Pressure 159/70 H 05/07/23 11:03 Pulse Oximetry 99 05/07/23 11:03 Oxygen Delivery Method Room Air 05/07/23 11:03 Temperature 96.6 F L 05/07/23 11:03 Pulse Rate 72 05/07/23 11:46 Respiratory Rate 16 05/07/23 11:46 Blood Pressure 143/81 H 05/07/23 11:46 Pulse Oximetry 99 05/07/23 11:46 Oxygen Delivery Method Room Air 05/07/23 11:03 Medical Decision Making MDM Narrative Medical decision making narrative: 72-year-old female with what appears to be a TIA, symptoms not resolved. Will start the patient on daily Plavix. She will follow up with vascular surgery as an outpatient. We did discuss the risk of stroke without proper medical management. Patient had no other questions. Medical Records Medical records reviewed: Yes I reviewed the patient's medical records Lab Data Lab results reviewed: Yes I reviewed the patient's lab results Labs: Lab Results 05/07/23 05/07/23 Range/Units 11:07 11:13 WBC 7.08 (4.50-11.00) K/uL RBC 4.93 (4.00-5.20) m/uL Hgb 15.5 (12.0-16.0) gm/dL Hct 46.4 (33.0-51.0) % MCV 94 (80-100) fL MCH 31 (26-34) pg MCHC 33 (32-36) gm/dL RDW Coeff of Joaquín 12.4 (11.5-15.5) % Plt Count 202 (140-440) K/uL Neut % (Auto) 65.1 (42.0-72.0) % Lymph % (Auto) 19.6 L (20-44) % [place] % (Auto) 10.7 (0.0-11.0) % Eos % (Auto) 3.4 (0.0-7.0) % Baso % (Auto) 0.4 (0.0-3.0) % Neut # (Auto) 4.60 (1.7-7.0) K/uL Lymph # (Auto) 1.40 (0.90-2.90) K/uL [place] # (Auto) 0.80 (0.00-0.90) K/UL Eos # (Auto) 0.24 (0.00-0.50) K/uL Baso # (Auto) 0.03 (0.00-0.30) K/uL INR 1.01 (0.91-1.10) Sodium 140 (135-149) mmol/L Potassium 4.1 (3.6-5.1) mmol/L Chloride 103 (96-114) mmol/L Carbon Dioxide 30 (20-32) mmol/L BUN 24 (7-30) mg/dL Creatinine 1.1 (0.5-1.5) mg/dL Estimated GFR 54 ml/min Glucose 96 (60-115) mg/dL Calcium 9.5 (8.4-10.6) mg/dL Urine Color Yellow (Yellow) Urine Appearance Clear (Clear) Urine pH 5.0 (5.0-8.5) Ur Specific [place] >= 1.030 (1.000-1.030) Urine Protein Negative (Negative) Urine Glucose (UA) Negative (Negative) Urine Ketones Negative (Negative) Urine Blood Negative (Negative) Urine Nitrite Negative (Negative) Urine Bilirubin Negative (Negative) Urine Urobilinogen 0.2 (0.2-1.0) Ur Leukocyte Esterase Negative (Negative) Urine RBC 0-2 (0-2) Urine WBC 2-5 (0-5) Ur Squamous Epith Cells Moderate A (None-Few) Urine Bacteria Few A (None) POC Troponin I 0.01 (0.01-0.04) ng/ml Imaging Data CT scan - head: Attestation: I have reviewed the pertinent imaging results. Radiologist's impression: COMPARISON: CT brain 07/01/2022. FINDINGS: New small to moderate chronic infarction within the anterolateral left parietal lobe. Stable chronic lacunar infarction or prominent perivascular space right internal capsule genu. Mild diffuse cerebral volume loss. No mass effect or midline shift. No acute intracranial hemorrhage or pathologic extra-axial fluid collection. Scattered hypoattenuation in the supratentorial white matter, suggestive of mild chronic microvascular ischemic changes. Dense intracranial atherosclerotic calcifications in the carotid siphons. Thinning of the ocular lenses. The calvarium is intact. The paranasal sinuses are well aerated. The mastoid air cells are clear. IMPRESSION: 1. No acute intracranial hemorrhage or mass effect. 2. New small moderate chronic infarction within the anterolateral left parietal lobe. CTA head and neck: Attestation: I have reviewed the pertinent imaging results. Radiologist's impression: Study:?CT Head Angio Angio CTA PROTOCOL-05/07/2023 11:35:39 AM Ordering Physician:Misael Varma Preliminary Report: No proximal large vessel occlusion. Moderately severe right supraclinoid internal carotid artery stenosis. No cervical arterial stenosis. ECG Data Attestation: I personally reviewed and interpreted this ECG as follows: Discharge Plan Discharge Clinical Impression: Brain TIA, Carotid artery stenosis Patient Disposition: Home, Self-Care Condition: Improved Additional Instructions: Start daily Plavix- this medication helps prevent further clots from occurring. Prescription has been sent to the pharmacy. You need to follow-up with vascular surgery as an outpatient as you have some stenosis of your carotid artery -information and phone number will be provided to you today. Follow-up with your primary care provider this coming week for a checkup and to make sure you have refills on the Plavix. Prescriptions: New clopidogrel [Plavix] 75 mg tablet 75 mg PO DAILY Qty: 30 0RF No Action acetaminophen-codeine 300-30 mg tablet 1 tab PO Q4H PRN (Reason: pain) Patient Comments: Take 1 Tablet by mouth every 4 hours if needed for Pain. Max acetaminophen dose: 4000mg in 24 hrs. losartan 25 mg tablet 25 mg PO DAILY Patient Comments: TAKE ONE TABLET BY MOUTH ONE TIME DAILY cholecalciferol (vitamin D3) 25 mcg (1,000 unit) capsule 1,000 unit PO DAILY polyvinyl alcohol-povidon(PF) 1.4-0.6 % dropperette 1 drp ophthalmic (eye) DAILY PRN Follow Up/Referrals: Serafin Johnson MD [Primary Care Provider] - Stand Alone Forms: imbookin ([place]) Info Instructions
[2023-05-07 12:02] VITALS: BP 150/67
[2023-05-07 12:08] LABS: Troponin, Point-of-Care* 0.01 ng/ml (0.01-0.04)
[2023-05-07 12:42] LABS: Troponin I* < 0.01 ng/mL (0.01-0.04)
== END 2023-05-07 12:35 | disposition home or self-care (01) ==
LOC: ED 12:33
PROVIDERS: Emergency Provider Family Medicine; PCP Family Medicine
DX: G45.9 Transient cerebral ischemic attack, unspecified (principal); I77.1 Stricture of artery
CPT/HCPCS: 36415; 70450; 70496; 70498; 80048; 81001; 84484; 85025; 85610; 87086; 93005; 94761; 99284; 99285; Q9967

== ENCOUNTER 2023-07-11 08:00 | Outpatient (RCR) | payer MEDICARE, BC, SELFPAY | END 2023-07-11 11:26 | disposition home or self-care (01) | PROVIDERS: PCP Family Medicine; Visit Provider Family Medicine | DX: I89.0 Lymphedema, not elsewhere classified (principal); Z51.89 Encounter for other specified aftercare | CPT/HCPCS: 97110; 97140; 97165; X5282 ==